=== PATIENT | male | born 2005 | race Caucasian/White ===

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

== ENCOUNTER 2025-01-26 09:43 | Outpatient (AMB) | payer BC, SELFPAY ==
--- NOTE | 2025-01-26 09:45 | MHC.OFFVIS ---
Intake Visit Reasons: 1m follow up Intake Note: Patient is present for 1M F/U Urology Medication:BETAMETHASONE Antibiotic Allergy:NONE Blood Thinner:NONE Advisory Services Associate Required: No Allergies No Known Allergies Allergy (Verified 01/26/25 10:13) Medication List - Last Reconciled 01/26/25 by CHRISTY Tineo betamethasone dipropionate 0.05% 1 appl topical BID HPI Comments Details: Loyda is a very pleasant 19-year-old male patient of Dr. Contreras. He presents to the office today for follow-up of his epididymitis and penile irritation. In discussion with the patient today he reports penile irritation has since subsided with betamethasone as prescribed during last office visit. He does describe having had intermittent episodes of scrotal discomfort however has not found this bothersome in describes this pain as infrequent and dull. On exam today the penis is uncircumcised again small left epididymal head cyst was palpated otherwise no open areas, drainage, or masses palpated throughout the area. Upon retraction of penile foreskin the meatus does not appear reddened and or irritated as prior. We did discussed potential causes of epididymitis. Will continue with surveillance monitoring. He otherwise denies any other bothersome urinary issues or concerns. He denies urinary urgency, urinary frequency, incontinence, nocturia, hematuria, dysuria, foul smelling urine, changes to urinary stream, flank pain, fever, and or chills. He is happy with his current voiding parameters. In office urinalysis results reviewed with the patient today. He is not sexually active and never has been. Scrotal ultrasound 12/14 possible left epididymitis. There is increased blood flow in the left epididymal head compared to the right. We discussed further treatment options and risks and benefits of these treatment options. All questions were answered. He otherwise offers no other issues or concerns at this time. [facility] Medical History No pertinent past medical history Social History Patient Tobacco Use Status: Never used Tobacco Review of Systems Const All systems reviewed & are unremarkable except as noted in HPI and below Physical Exam Const General: cooperative, comfortable, no acute distress, well developed, alert and awake Orientation/consciousness: patient oriented x3 HEENT Head: Yes normal to inspection, Yes normocephalic and Yes atraumatic Ears: hearing grossly normal bilaterally Eyes General: appearance normal, both eyes and all related structures Neck Neck: Yes normal visual inspection and Yes trachea midline Chest Chest palpation & inspection: normal inspection of the chest Resp Effort & Inspection: normal respiratory effort and able to speak in complete sentences Cardio Rate: regular rate GI Inspection: Yes normal to inspection General: Yes no CVA tenderness Penis: uncircumcised Meatus: meatus normal and other Scrotum: other (Left epididymal head cyst) Back/Spine/Pelvis Back: no CVA tenderness Skin General skin exam: no rashes or lesions noted Neuro General: patient oriented x3 Extrem General: Yes normal to inspection Psych Appearance: grossly normal and well kempt Mental Status: mental status grossly normal Speech and movement: Normal speech and movement present and Clear speech present Affect: normal affect Attitude: cooperative Thought process: Normal thought process present Thought content: Normal thought content present Insight: Fair insight present (Psych) Judgement: Fair judgement present (Psych) Results AMB Urinalysis, Automated UA Leukoctes 0 Vazquez/uL Last Edit by VEE Oneill on 01/26/25 09:56 UA Nitrite Negative Last Edit by VEE Oneill on 01/26/25 09:56 UA Urobilinogen 0.2 mg/dL Last Edit by VEE Oneill on 01/26/25 09:56 UA Protein 15 mg/dL Last Edit by VEE Oneill on 01/26/25 09:56 UA pH 6.5 Last Edit by VEE Oneill on 01/26/25 09:56 UA Blood 0 Derik/uL Last Edit by VEE Oneill on 01/26/25 09:56 UA Specific [place] 1.015 Last Edit by VEE Oneill on 01/26/25 09:56 UA Ketone Negative Last Edit by VEE Oneill on 01/26/25 09:56 UA Bilirubin 0 mg/dL Last Edit by VEE Oneill on 01/26/25 09:56 UA Glucose 0 mg/dL Last Edit by VEE Oneill on 01/26/25 09:56 Results Reviewed Results Reviewed: Laboratory Last Values Urine pH (Auto) 6.5 01/26/25 09:55 Specific [place] (Auto) 1.015 01/26/25 09:55 Urine Protein (Auto) 15 mg/dL 01/26/25 09:55 Glucose (UA)(Auto) 0 mg/dL 01/26/25 09:55 Urine Ketones (Auto) Negative 01/26/25 09:55 Urine Blood (Auto) 0 Derik/uL 01/26/25 09:55 Urine Nitrite (Auto) Negative 01/26/25 09:55 Urine Bilirubin (Auto) 0 mg/dL 01/26/25 09:55 Urine Urobilinogen (Auto) 0.2 mg/dL 01/26/25 09:55 Leukocyte Esterase (Auto) 0 Vazquez/uL 01/26/25 09:55 Assessment & Plan Assessment & Plan (1) Epididymal cyst: Code(s): N50.3 - Cyst of epididymis Category: Medical (2) Irritation of urethral meatus: Code(s): N36.8 - Other specified disorders of urethra Category: Medical Plan In office urinalysis results reviewed with the patient today; as noted above. Reassurance provided. Will continue with surveillance monitoring. We did discussed potential causes of penile irritation as well as epididymitis; we did discussed further treatment options and risks and benefits of these treatment options. He currently denies any bothersome urinary issues or concerns. He reports be happy with current voiding parameters. Will obtain scrotal ultrasound in 6 months. Follow-up in 6 months with imaging to be completed prior; or sooner with any issues, concerns, and or questions. Orders: Orders US scrotum 6 Months N36.8 - Other specified disorders of urethra, N50.3 - Cyst of epididymis AMB Urinalysis Automated Today Z13.9 - Encounter for screening, unspecified Patient Instructions: The patient had an opportunity to ask questions regarding the treatment plan. All questions were answered. Physical exam, labs, and imaging were discussed and reviewed in detail. As well as risks, benefits, and discussion of treatment choices. No major barriers to understanding were identified. The patient expressed understanding and agreement with the above treatment plan. The patient was made aware they should contact our office by phone for worsening of their current condition, the appearance of new symptoms, or with any questions or concerns. Compliance is encouraged with any medications and follow up testing that is ordered. It is a privilege to be allowed the opportunity to participate in? your urological care.? Again, if you have any questions or concerns If you have any questions or concerns please do not hesitate to contact me. The office is [phone]. This note is constructed using voice recognition software. While every effort has been made to ensure accuracy wall steamer errors may have been included. Yours sincerely, CHRISTY Tineo Coding Level of Care Code Est Pt Level 3 (79278) Diagnoses Epididymal cyst N50.3 Irritation of urethral meatus N36.8
--- OUTSIDE RECORDS SUMMARY | 2025-01-26 10:10 | XMS_ITS | Encounter Summary ---
Author Organization [facility] Address [address] [place] [address] Phone Care Team Providers Care Retirement Specialist Name Role Phone Yani Contreras MD Primary Care Provider [phone] Encounter Details Date Type Department Care Team (Late st Contact Info) Description 05/04/2014 Documentation EM Family Medicine [address] [place] [address] Family Medicine, Physician [address] [place], [place] [phone] Social History Tobacco Use Types Packs/Day Years [...] on filedocumented in this encounter Care Teams Retirement Specialist Relationship Specialty Start Date End Date Yani Contreras MD [address] [place] [address] [place] [address] PCP - General 01/30/17 documented as of this encounter
== END 2025-01-26 10:16 | disposition home or self-care (01) ==
LOC: HO.HUSH 09:43
PROVIDERS: PCP Specialist; Visit Provider Nurse Practitioner Family
DX: N50.3 Cyst of epididymis (principal); N36.8 Other specified disorders of urethra; Z13.9 Encounter for screening, unspecified
CPT/HCPCS: 99213

== ENCOUNTER → 2025-01-26 09:43 | Outpatient (BNVA) | payer BC, SELFPAY | PROVIDERS: PCP Specialist; Visit Provider Nurse Practitioner Family | DX: N50.3 Cyst of epididymis (principal) | CPT/HCPCS: 81003 ==

== ENCOUNTER 2025-06-05 16:02 | Outpatient (REF) | payer BC, SELFPAY ==
--- NOTE | ~2025-06-05 | US_ITS ---
EXAMINATION: US SCROTUM HISTORY: N50.3 - Cyst of epididymis. COMPARISON: Comparison is made with the prior examination dated 12/01/2024. FINDINGS: Real-time grayscale ultrasound imaging of the scrotum was performed. RIGHT TESTICLE: The right testis measures 4.5 x 2.0 x 3.2 cm and demonstrates normal homogeneous echotexture. No masses are seen. The right testis demonstrates normal color Doppler flow. RIGHT EPIDIDYMIS: Normal in size, shape, and vascularity. LEFT TESTICLE: The left testis measures 4.6 x 1.8 x 3.1 cm and demonstrates normal homogeneous echotexture. No masses are seen. The left testis demonstrates normal color Doppler flow. LEFT EPIDIDYMIS: Normal in size, shape, and vascularity. The previously seen 2 mm epididymal head cyst is not identified. VARICOCELE: There is a small left varicocele. HYDROCELE: No significant hydrocele is seen. OTHER COMMENTS: None. US/US scrotum IMPRESSION: Small left varicocele. Otherwise unremarkable scrotal ultrasound. Electronically signed by: Sarkis Tyler MD 06/06/2025 07:06 AM [facility]
--- OUTSIDE RECORDS SUMMARY | 2025-06-05 22:24 | XMS_ITS | Encounter Summary ---
Author Organization [facility] Address [address] [place] [address] Phone Care Team Providers Care Hot Frame Tender Name Role Phone Yani Contreras MD Primary Care Provider [phone] Encounter Details Date Type Department Care Team (Late st Contact Info) Description 11/06/2015 Documentation EM Family Medicine [address] [place] [address] Family Medicine, Physician [address] [place], [place] [phone] Social History Tobacco Use Types Packs/Day Years [...] on filedocumented in this encounter Care Teams Hot Frame Tender Relationship Specialty Start Date End Date Yani Contreras MD [address] [place] [address] [place] [address] PCP - General 01/30/17 documented as of this encounter
--- OUTSIDE RECORDS SUMMARY | 2025-06-05 22:24 | XMS_ITS | Encounter Summary ---
Author Organization [facility] Address [address] [place] [address] Phone Care Team Providers Care Biology Specialist Name Role Phone Yani Contreras MD Primary Care Provider [phone] Encounter Details Date Type Department Care Team (Late st Contact Info) Description 05/13/2011 Documentation EM Family Medicine [address] [place] [address] Family Medicine, Physician [address] [place], [place] [phone] Social History Tobacco Use Types Packs/Day Years [...] on filedocumented in this encounter Care Teams Biology Specialist Relationship Specialty Start Date End Date Yani Contreras MD [address] [place] [address] [place] [address] PCP - General 01/30/17 documented as of this encounter
--- OUTSIDE RECORDS SUMMARY | 2025-06-05 22:24 | XMS_ITS | Encounter Summary ---
Author Organization [facility] Address [address] [place] [address] Phone Care Team Providers Care Eligibility Examiner Name Role Phone Yani Contreras MD Primary Care Provider [phone] Encounter Details Date Type Department Care Team (Late st Contact Info) Description 05/13/2011 Documentation EM Family Medicine [address] [place] [address] Family Medicine, Physician [address] [place], [place] [phone] Social History Tobacco Use Types Packs/Day Years [...] on filedocumented in this encounter Care Teams Eligibility Examiner Relationship Specialty Start Date End Date Yani Contreras MD [address] [place] [address] [place] [address] PCP - General 01/30/17 documented as of this encounter
--- OUTSIDE RECORDS SUMMARY | 2025-06-05 22:24 | XMS_ITS | Encounter Summary ---
Author Organization [facility] Address [address] [place] [address] Phone Care Team Providers Care Industrial Cleaner Name Role Phone Yani Contreras MD Primary Care Provider [phone] Encounter Details Date Type Department Care Team (Late st Contact Info) Description 02/05/2017 Conversion Encounter [facility] [address] [place], [place] [phone] Social History Tobacco Use Types Packs/Day Years [...] on filedocumented in this encounter Care Teams Industrial Cleaner Relationship Specialty Start Date End Date Yani Contreras MD [address] [place] [address] PCP - General 01/30/17 documented as of this encounter
--- OUTSIDE RECORDS SUMMARY | 2025-06-05 22:24 | XMS_ITS | Encounter Summary ---
Author Organization [facility] Address [address] [place] [address] Phone Care Team Providers Care Renewable Energy Trader Name Role Phone Yani Contreras MD Primary Care Provider [phone] Encounter Details Date Type Department Care Team (Late st Contact Info) Description 05/04/2014 Documentation EM Family Medicine [address] [place] [address] Family Medicine, Physician [address] [place], [place] [phone] Social History Tobacco Use Types Packs/Day Years [...] on filedocumented in this encounter Care Teams Renewable Energy Trader Relationship Specialty Start Date End Date Yani Contreras MD [address] [place] [address] [place] [address] PCP - General 01/30/17 documented as of this encounter
--- OUTSIDE RECORDS SUMMARY | 2025-06-05 22:24 | XMS_ITS | Encounter Summary ---
Author Organization [facility] Address [address] [place] [address] Phone Care Team Providers Care Conventions Assistant Name Role Phone Yani Contreras MD Primary Care Provider Encounter Details Date Type Department Care Team (Late st Contact Info) Description 05/04/2014 Documentation EM Family Medicine [address] [place] [address] Family Medicine, Physician [address] [place], [place] [phone] Social History Tobacco Use Types Packs/Day Years [...] on filedocumented in this encounter Care Teams Conventions Assistant Relationship Specialty Start Date End Date Yani Contreras MD [address] [place] [address] [place] [address] PCP - General 01/30/17 documented as of this encounter
--- OUTSIDE RECORDS SUMMARY | 2025-06-05 22:24 | XMS_ITS | Encounter Summary ---
Author Organization [facility] Address [address] [place] [address] Phone Care Team Providers Care Electric Shipyard Operator Name Role Phone Yani Contreras MD Primary Care Provider [phone] Encounter Details Date Type Department Care Team (Late st Contact Info) Description 10/19/2015 Documentation EM Family Medicine [address] [place] [address] Family Medicine, Physician [address] [place], [place] [phone] Social History Tobacco Use Types Packs/Day Years [...] on filedocumented in this encounter Care Teams Electric Shipyard Operator Relationship Specialty Start Date End Date Yani Contreras MD [address] [place] [address] [place] [address] PCP - General 01/30/17 documented as of this encounter
--- OUTSIDE RECORDS SUMMARY | 2025-06-05 22:24 | XMS_ITS | Encounter Summary ---
Author Organization [facility] Address [address] [place] [address] Phone Care Team Providers Care Care Transport Nurse Name Role Phone Yani Contreras MD Primary Care Provider [phone] Encounter Details Date Type Department Care Team (Late st Contact Info) Description 05/13/2011 Documentation EM Family Medicine [address] [place] [address] Family Medicine, Physician [address] [place], [place] [phone] Social History Tobacco Use Types Packs/Day Years [...] on filedocumented in this encounter Care Teams Care Transport Nurse Relationship Specialty Start Date End Date Yani Contreras MD [address] [place] [address] [place] [address] PCP - General 01/30/17 documented as of this encounter
--- OUTSIDE RECORDS SUMMARY | 2025-06-05 22:24 | XMS_ITS | Encounter Summary ---
Author Organization [facility] Address [address] [place] [address] Phone Care Team Providers Care Business Analytics Manager Name Role Phone Yani Contreras MD Primary Care Provider [phone] Encounter Details Date Type Department Care Team (Late st Contact Info) Description 05/03/2013 Documentation EM Family Medicine [address] [place] [address] Family Medicine, Physician [address] [place], [place] [phone] Social History Tobacco Use Types Packs/Day Years [...] on filedocumented in this encounter Care Teams Business Analytics Manager Relationship Specialty Start Date End Date Yani Contreras MD [address] [place] [address] [place] [address] PCP - General 01/30/17 documented as of this encounter
--- OUTSIDE RECORDS SUMMARY | 2025-06-05 22:24 | XMS_ITS | Encounter Summary ---
Author Organization [facility] Address [address] [place] [address] Phone Care Team Providers Care Rush Seater Name Role Phone Yani Contreras MD Primary Care Provider [phone] Encounter Details Date Type Department Care Team (Late st Contact Info) Description 09/29/2014 Documentation EM Family Medicine [address] [place] [address] Family Medicine, Physician [address] [place], [place] [phone] Social History Tobacco Use Types Packs/Day Years [...] on filedocumented in this encounter Care Teams Rush Seater Relationship Specialty Start Date End Date Yani Contreras MD [address] [place] [address] [place] [address] PCP - General 01/30/17 documented as of this encounter
--- OUTSIDE RECORDS SUMMARY | 2025-06-05 22:24 | XMS_ITS | Encounter Summary ---
Author Organization [facility] Address [address] [place] [address] Phone Care Team Providers Care Building Dismantler Name Role Phone Yani Contreras MD Primary Care Provider [phone] Encounter Details Date Type Department Care Team (Late st Contact Info) Description 05/24/2013 Documentation EM Family Medicine [address] [place] [address] Family Medicine, Physician [address] [place], [place] [phone] Social History Tobacco Use Types Packs/Day Years [...] on filedocumented in this encounter Care Teams Building Dismantler Relationship Specialty Start Date End Date Yani Contreras MD [address] [place] [address] [place] [address] PCP - General 01/30/17 documented as of this encounter
--- OUTSIDE RECORDS SUMMARY | 2025-06-05 22:24 | XMS_ITS | Encounter Summary ---
Author Organization [facility] Address [address] [place] [address] Phone Care Team Providers Care Supervisor Livestock Yard Name Role Phone Yani Contreras MD Primary Care Provider [phone] Encounter Details Date Type Department Care Team (Late st Contact Info) Description 05/13/2011 Documentation EM Family Medicine [address] [place] [address] Family Medicine, Physician [address] [place], [place] [phone] Social History Tobacco Use Types Packs/Day Years [...] on filedocumented in this encounter Care Teams Supervisor Livestock Yard Relationship Specialty Start Date End Date Yani Contreras MD [address] [place] [address] [place] [address] PCP - General 01/30/17 documented as of this encounter
--- OUTSIDE RECORDS SUMMARY | 2025-06-05 22:24 | XMS_ITS | Encounter Summary ---
Author Organization [facility] Address [address] [place] [address] Phone Care Team Providers Care Acquisition Specialist Name Role Phone Yani Contreras MD Primary Care Provider [phone] Encounter Details Date Type Department Care Team (Late st Contact Info) Description 05/19/2012 Documentation EM Family Medicine [address] [place] [address] Family Medicine, Physician [address] [place], [place] [phone] Social History Tobacco Use Types Packs/Day Years [...] on filedocumented in this encounter Care Teams Acquisition Specialist Relationship Specialty Start Date End Date Yani Contreras MD [address] [place] [address] [place] [address] PCP - General 01/30/17 documented as of this encounter
--- OUTSIDE RECORDS SUMMARY | 2025-06-05 22:24 | XMS_ITS | Encounter Summary ---
Author Organization [facility] Address [address] [place] [address] Phone Care Team Providers Care Docking Pilot Name Role Phone Yani Contreras MD Primary Care Provider [phone] Encounter Details Date Type Department Care Team (Late st Contact Info) Description 10/20/2016 Documentation EM Family Medicine [address] [place] [address] Family Medicine, Physician [address] [place], [place] [phone] Social History Tobacco Use Types Packs/Day Years [...] on filedocumented in this encounter Care Teams Docking Pilot Relationship Specialty Start Date End Date Yani Contreras MD [address] [place] [address] [place] [address] PCP - General 01/30/17 documented as of this encounter
--- OUTSIDE RECORDS SUMMARY | 2025-06-05 22:24 | XMS_ITS | Encounter Summary ---
Author Organization [facility] Address [address] [place] [address] Phone Care Team Providers Care Fisheries Director Name Role Phone Yani Contreras MD Primary Care Provider [phone] Encounter Details Date Type Department Care Team (Late st Contact Info) Description 06/01/2015 Documentation EM Family Medicine [address] [place] [address] Family Medicine, Physician [address] [place], [place] [phone] Social History Tobacco Use Types Packs/Day Years [...] on filedocumented in this encounter Care Teams Fisheries Director Relationship Specialty Start Date End Date Yani Contreras MD [address] [place] [address] [place] [address] PCP - General 01/30/17 documented as of this encounter
--- OUTSIDE RECORDS SUMMARY | 2025-06-05 22:24 | XMS_ITS | Encounter Summary ---
Author Organization [facility] Address [address] [place] [address] Phone Care Team Providers Care Hand Tufter Name Role Phone Yani Contreras MD Primary Care Provider [phone] Encounter Details Date Type Department Care Team (Late st Contact Info) Description 04/28/2016 Documentation EM Family Medicine [address] [place] [address] Family Medicine, Physician [address] [place], [place] [phone] Social History Tobacco Use Types Packs/Day Years [...] on filedocumented in this encounter Care Teams Hand Tufter Relationship Specialty Start Date End Date Yani Contreras MD [address] [place] [address] [place] [address] PCP - General 01/30/17 documented as of this encounter
--- OUTSIDE RECORDS SUMMARY | 2025-06-05 22:24 | XMS_ITS | Encounter Summary ---
Author Organization [facility] Address [address] [place] [address] Phone Care Team Providers Care Poultry Farmer Meat Name Role Phone Yani Contreras MD Primary Care Provider [phone] Encounter Details Date Type Department Care Team (Late st Contact Info) Description 05/03/2013 Documentation EM Family Medicine [address] [place] [address] Family Medicine, Physician [address] [place], [place] [phone] Social History Tobacco Use Types Packs/Day Years [...] on filedocumented in this encounter Care Teams Poultry Farmer Meat Relationship Specialty Start Date End Date Yani Contreras MD [address] [place] [address] [place] [address] PCP - General 01/30/17 documented as of this encounter
--- OUTSIDE RECORDS SUMMARY | 2025-06-05 22:24 | XMS_ITS | Encounter Summary ---
Author Organization [facility] Address [address] [place] [address] Phone Care Team Providers Care Metalworking Specialist Name Role Phone Yani Contreras MD Primary Care Provider [phone] Encounter Details Date Type Department Care Team (Late st Contact Info) Description 10/20/2016 Documentation EM Family Medicine [address] [place] [address] Family Medicine, Physician [address] [place], [place] [phone] Social History Tobacco Use Types Packs/Day Years [...] on filedocumented in this encounter Care Teams Metalworking Specialist Relationship Specialty Start Date End Date Yani Contreras MD [address] [place] [address] [place] [address] PCP - General 01/30/17 documented as of this encounter
--- OUTSIDE RECORDS SUMMARY | 2025-06-05 22:24 | XMS_ITS | Encounter Summary ---
Author Organization [facility] Address [address] [place] [address] Phone Care Team Providers Care Load Dropper Name Role Phone Yani Contreras MD Primary Care Provider [phone] Encounter Details Date Type Department Care Team (Late st Contact Info) Description 09/29/2014 Documentation EM Family Medicine [address] [place] [address] Family Medicine, Physician [address] [place], [place] [phone] Social History Tobacco Use Types Packs/Day Years [...] on filedocumented in this encounter Care Teams Load Dropper Relationship Specialty Start Date End Date Yani Contreras MD [address] [place] [address] [place] [address] PCP - General 01/30/17 documented as of this encounter
--- OUTSIDE RECORDS SUMMARY | 2025-06-05 22:24 | XMS_ITS | Encounter Summary ---
Author Organization [facility] Address [address] [place] [address] Phone Care Team Providers Care Dealer Sales Rep Name Role Phone Yani Contreras MD Primary Care Provider [phone] Encounter Details Date Type Department Care Team (Late st Contact Info) Description 04/28/2016 Documentation EM Family Medicine [address] [place] [address] Family Medicine, Physician [address] [place], [place] [phone] Social History Tobacco Use Types Packs/Day Years [...] on filedocumented in this encounter Care Teams Dealer Sales Rep Relationship Specialty Start Date End Date Yani Contreras MD [address] [place] [address] [place] [address] PCP - General 01/30/17 documented as of this encounter
--- OUTSIDE RECORDS SUMMARY | 2025-06-05 22:25 | XMS_ITS | Clinical Summary ---
Author Organization [facility] Address [address] [place] [address] Phone Care Team Providers Care Gauge Inspector Name Role Phone Yani Contreras MD Primary Care Provider [phone] Allergies Active Allergy Reactions Criticality Noted Date Comments Environmental 05/29/2022 Seasonal Medications No known medications Active Problems Problem Noted Date Diagnosed Date Family disruption due to divorce 12/24/2020 Overview (12/24/2020): process x 2 yr; finalized and now living separately x 1 mo; co- parenting dad in [place] and mom in [facility]; per dad they (Hamzah) say they are fine -explanation of [facility] services and business cards provided if needed Assessment & Plan (12/24/2020 2:39 PM EDT): process x 2 yr; finalized and now living separately x 1 mo; co- parenting dad in [place] and mom in [facility]; per dad they (Hamzah) say they are fine -explanation of [facility] services and business cards provided if needed Immunizations Immunization Administration Dates Next Due COVID-19 Pfizer, genevieve-sucros e, 12+ years 08/04/2021 DTaP 03/29/2010 DTaP / Hep B / IPV 02/02/2006,2005, 006 DTaP 5 10/30/2006 H1N1 05/29/2009,04/11/2009 HPV Vaccine 9 Valent 10/23/2017,10/20/2016 Hep A, ped/adol 02/09/2007,08/11/2006 Hib (HbOC) 10/30/2006 Hib (PRP-T) 02/02/2006,2005,2005 IPV 03/29/2010 Influenza Split 05/18/2012 Influenza, injectable, quadrivalent 04/15/2015,1 07/03/2013 Influenza, injectable, quadr ivalent, preservative free 05/13/2022,04/12/2020,05/15/2019,06/07,04/22/2017,04/27/2016 Influenza, injectable, trivalent 009,05/12/2008,04/16/2007,06/10,05/08/2006 Influenza, intranasal, quadrivalent 05/02/2013 Influenza, intranasal, trivalent 05/12/2011,10/0 01/2010 MMR 03/29/2010 MMRV 08/11/2006 Meningococcal Conj (Menactra) MCV4P 10/20/2016 Meningococcal Conj (Menquadfi) MCV4TT 05/29/2022 Pneumococcal Conjugate 10/30/2006,2005,2005,09/29 Tdap 10/20/2016 Varicella 03/29/2010 Family History Medical History Relation Name Comments No Known Problems Brother Aleksander Malone Anxiety disorder Father Amarjit Malone Substance abuse Maternal Grandmother Anxiety disorder Mother Remy Perez Relation Name Status Comments Brother Aleksander Malone Alive Brother: Aliv e and well Father Amarjit Malone Alive Father: Alive a nd well Maternal Grandmother Mother Remy Perez Alive Mother: Alive and well Other Family history of Hyperlipidemia Social History Tobacco Use Types Packs/Day Years Used Date Smoking Tobacco: Never Smokeless Tobacco: Never Tobacco Cessation:Counseling Given: Yes Alcohol Use Standard Drinks/Week Comments Never 0 (1 standard drink = 0.6 oz pur e alcohol) Hunger/Food Answer Date Recorded In the last 12 months, did y ou or your family ever eat less than you felt you should because there wasn't enough money for food? No 06/09/2023 Stable Housing Answer Date Recorded Are you worried that in the next 2 months you may not have stable housing? No 06/09/2023 Transportation Concerns Answer Date Rec orded In the last 12 months, have you or your family ever had to go without healthcare because you didn't have a way to get there? No 06/09/2023 Hazards in Home Answer Date Recorded Think about the place you li ve. Do you have problems with any of the following? Pests (mice or roaches), mold, no/not working smoke detectors, water leaks, no window guards. No 2022 Financing Utilities Answer Date Recorde d In the last 12 months, has t he electric, gas, oil, or water company threatened to shut off your services in your home? No 06/09/2023 Safety at Home Answer Date Recorded Are you or your family worried about feeling saf e in your home? No 06/09/2023 Outside Support Answer Date Recorded Do you feel that you need mo re support from other people or programs to help you care for yourself or your family? No 06/09/2023 Understanding Health Concerns Answer Da te Recorded Do you need help understandi ng your or your child's healthcare needs (diagnosis, medications, plan, etc.)? No 06/09/2023 Financing Health Concerns Answer Date R ecorded In the last 12 months, was t here a time when your child needed to see a doctor or get medications or supplies but could not because of cost? No 06/09/2023 Missing School or Work Answer Date Odilon rded Did you or your child miss s chool or work because of a health problem that could have been avoided? No 06/09/2023 Sex and Gender Information Value Date Recorded Sex Assigned at Male 06/09/2023 1:56 PM EST Legal Sex Male 5:20 PM EDT Gender Identity Male 06/09/2023 1:56 PM EST Sexual Orientation Straight 06/09/2023 1: 56 PM EST Last Filed Vital Signs Vital Sign Reading Time Taken Comments Blood Pressure 115/69 06/09/2023 1:24 PM EST Pulse 60 06/09/2023 1:24 PM EST Temperature 36.2 C (97.1 F) 05/29/2022 1:47 PM EST Respiratory Rate - - Oxygen Saturation - - Inhaled Oxygen Concentration - - Weight 62.1 kg (136 lb 12.8 oz) 06/09/2023 1:24 PM EST Height 182 cm (5' 11.65 ) 06/09/2023 1:24 PM EST Body Mass Index 18.73 06/09/2023 1:24 PM EST Body Mass Index Percentile 9.40% 06/09/2023 1:2 4 PM EST Growth Chart: CDC (Boys, 2-2 0 Years) Plan of Treatment Health Maintenance Due Date Last Done Comments Men B Vaccine (1 of 2 - Standard) 2021 Influenza Vaccines (#1) 2025 05/13/20, 04/12/2020, 05/15/2019, Additional history exists COVID-19 Vaccine (5 - 2024-2 6 season) 2025 05/13/2022, 08/04/2021, 12/10/2020, Additional history exists DTaP,Tdap,and Td Vaccines (7 - Td or Tdap) 10/20/2026 10/20/2016, 03/29/2010, 10/30/2006, Additional history exists Hepatitis B Vaccines Completed 02/02/2006, 2005, 2005 HIB Vaccines Completed 10/30/2006, 01/20, 2005, Additional history exists Pneumococcal Vaccine Completed 10/30/2006, 02/02/2006, 2005, Additional history exists Hepatitis A Vaccines Completed 02/09/2007, 08/11/19 07 IPV Vaccines Completed 03/29/2010, 01/20, 2005, Additional history exists MMR Vaccines Completed 03/29/2010, 08/11/2006 Varicella Vaccines Completed 03/29/2010, 08/11/2006 HPV Vaccines Completed 10/23/2017, 10/20/2016 Meningococcal Vaccine Completed 05/29/2022, 017 Insurance [employer] Care Teams Gauge Inspector Relationship Specialty Start Date End Date Yani Contreras MD [address] [place] [address] [place] [address] PCP - General 01/30/17
--- OUTSIDE RECORDS SUMMARY | 2025-06-05 22:25 | XMS_ITS | Encounter Summary ---
Author Organization [facility] Address [address] [place] [address] Phone Care Team Providers Care Press Machine Feeder Name Role Phone Yani Contreras MD Primary Care Provider [phone] Encounter Details Date Type Department Care Team (Late st Contact Info) Description 06/28/2015 Documentation EM Family Medicine [address] [place] [address] Family Medicine, Physician [address] [place], [place] [phone] Social History Tobacco Use Types Packs/Day Years [...] on filedocumented in this encounter Care Teams Press Machine Feeder Relationship Specialty Start Date End Date Yani Contreras MD [address] [place] [address] [place] [address] PCP - General 01/30/17 documented as of this encounter
--- OUTSIDE RECORDS SUMMARY | 2025-06-05 22:25 | XMS_ITS | Encounter Summary ---
Author Organization [facility] Address [address] [place] [address] Phone Care Team Providers Care Bureau Chief Name Role Phone Yani Contreras MD Primary Care Provider [phone] Encounter Details Date Type Department Care Team (Late st Contact Info) Description 06/27/2015 Documentation EM Family Medicine [address] [place] [address] Family Medicine, Physician [address] [place], [place] [phone] Social History Tobacco Use Types Packs/Day Years [...] on filedocumented in this encounter Care Teams Bureau Chief Relationship Specialty Start Date End Date Yani Contreras MD [address] [place] [address] [place] [address] PCP - General 01/30/17 documented as of this encounter
--- OUTSIDE RECORDS SUMMARY | 2025-06-05 22:25 | XMS_ITS | Encounter Summary ---
Author Organization [facility] Address [address] [place] [address] Phone Care Team Providers Care Veneer Production Machine Operator Name Role Phone Yani Contreras MD Primary Care Provider [phone] Encounter Details Date Type Department Care Team (Late st Contact Info) Description 10/19/2015 Documentation EM Family Medicine [address] [place] [address] Family Medicine, Physician [address] [place], [place] [phone] Social History Tobacco Use Types Packs/Day Years [...] on filedocumented in this encounter Care Teams Veneer Production Machine Operator Relationship Specialty Start Date End Date Yani Contreras MD [address] [place] [address] [place] [address] PCP - General 01/30/17 documented as of this encounter
== END 2025-06-05 16:03 | disposition home or self-care (01) ==
LOC: HO.US 16:02
PROVIDERS: PCP Specialist; Visit Provider Nurse Practitioner Family
DX: N50.3 Cyst of epididymis (principal); N36.8 Other specified disorders of urethra
CPT/HCPCS: 76870

== ENCOUNTER → 2025-06-05 16:04 | Outpatient (BNV) | payer BC, SELFPAY | PROVIDERS: PCP Specialist; Visit Provider Radiology Diagnostic Radiology | DX: N50.3 Cyst of epididymis (principal); I86.1 Scrotal varices | CPT/HCPCS: 76870 ==

== ENCOUNTER 2025-06-19 11:26 | Outpatient (AMB) | payer BC, SELFPAY ==
--- NOTE | 2025-06-19 11:26 | A.OFFVIS_ITS ---
Intake Visit Reasons: 5m/US/UA Intake Note: Patient is present for 5M F/U Urology Medication: none Antibiotic Allergy:NONE Blood Thinner:NONE Imaging : Scrotum US 06/05/25 Office Machine Installer Required: No Accompanied by: Self / Same As Patient Allergies No Known Allergies Allergy (Verified 06/19/25 11:35) Medication List - Last Reconciled 06/19/25 by CHRISTY Tineo No Known Home Meds HPI Comments Details: Loyda is a very pleasant 19-year-old male patient of Dr. Contreras. He presents to the office today for follow-up of his epididymitis and penile irritation. In discussion with the patient today he reports to be doing and feeling well. He denies having had any bothersome urinary issues or concerns since his last office visit here. He reports penile irritation has since subsided with betamethasone as prescribed. He denies having had any scrotal discomfort in the last 6 months. Most recent scrotal imaging results reviewed with the patient today 06/15 small left varicocele. Otherwise unremarkable scrotal ultrasound. In assessment of the patient today the penis is unci rcumcised upon retraction of penile foreskin the head of the penis does not appear irritated. No open areas, lesions, and or drainage noted. No palpable abnormalities within the scrotum. He denies urinary urgency, urinary frequency, incontinence, nocturia, hematuria, dysuria, foul smelling urine, changes to urinary stream, flank pain, fever, and or chills. He is happy with his current voiding parameters. In office urinalysis results reviewed with the patient today. He is not sexually active and never has been. All questions were answered. He otherwise offers no other issues or concerns at this time. [facility] Medical History No pertinent past medical history Social History Patient Tobacco Use Status: Never used Tobacco Review of Systems Const All systems reviewed & are unremarkable except as noted in HPI and below Physical Exam Const General: cooperative, comfortable, no acute distress, well developed, alert and awake Orientation/consciousness: patient oriented x3 HEENT Head: Yes normal to inspection, Yes normocephalic and Yes atraumatic Ears: hearing grossly normal bilaterally Eyes General: appearance normal, both eyes and all related structures Neck Neck: Yes normal visual inspection and Yes trachea midline Chest Chest palpation & inspection: normal inspection of the chest Resp Effort & Inspection: normal respiratory effort and able to speak in complete sentences Cardio Rate: regular rate GI Inspection: Yes normal to inspection General: Yes no CVA tenderness Penis: uncircumcised Meatus: meatus normal Scrotum: scrotum normal Testes: Testes normal Back/Spine/Pelvis Back: no CVA tenderness Skin General skin exam: no rashes or lesions noted Neuro General: patient oriented x3 Extrem General: Yes normal to inspection Psych Appearance: grossly normal and well kempt Mental Status: mental status grossly normal Speech and movement: Normal speech and movement present and Clear speech present Affect: normal affect Attitude: cooperative Thought process: Normal thought process present Thought content: Normal thought content present Insight: Fair insight present (Psych) Judgement: Fair judgement present (Psych) Results AMB Urinalysis, Automated UA Leukoctes 0 Vazquez/uL Last Edit by Kinsey Amaro [facility] on 06/19/25 11:33 UA Nitrite Negative Last Edit by Kinsey Amaro [facility] on 06/19/25 11:33 UA Urobilinogen 0.2 mg/dL Last Edit by Kinsey Amaro [facility] on 06/19/25 11:33 UA Protein 0 mg/dL Last Edit by Kinsey Amaro [facility] on 06/19/25 11:33 UA pH 7.5 Last Edit by Kinsey Prem [facility] on 06/19/25 11:33 UA Blood 0 Derik/uL Last Edit by Kinsey Amaro [facility] on 06/19/25 11:33 UA Specific [facility] 1.010 Last Edit by Kinsey Amaro [facility] on 06/19/25 11:3 3 UA Ketone Negative Last Edit by Kinsey Amaro [facility] on 06/19/25 11:33 UA Bilirubin 0 mg/dL Last Edit by Kinseynathaniel Amaro [facility] on 06/19/25 11:33 UA Glucose 0 mg/dL Last Edit by Kinsey Amaro [facility] on 06/19/25 11:33 Results Reviewed Results Reviewed: Laboratory Last Values Urine pH (Auto) 7.5 06/19/25 11:32 Specific [facility] (Auto) 1.010 06/19/25 11:32 Urine Protein (Auto) 0 mg/dL 06/19/25 11:32 Glucose (UA)(Auto) 0 mg/dL 06/19/25 11:32 Urine Ketones (Auto) Negative 06/19/25 11:32 Urine Blood (Auto) 0 Derik/uL 06/19/25 11:32 Urine Nitrite (Auto) Negative 06/19/25 11:32 Urine Bilirubin (Auto) 0 mg/dL 06/19/25 11:32 Urine Urobilinogen (Auto) 0.2 mg/dL 06/19/25 11:32 Leukocyte Esterase (Auto) 0 Vazquez/uL 06/19/25 11:32 Date of Service: 06/05/25 Procedure(s): US scrotum FINDINGS: Real-time grayscale ultrasound imaging of the scrotum was performed. RIGHT TESTICLE: The right testis measures 4.5 x 2.0 x 3.2 cm and demonstrates normal homogeneous echotexture. No masses are seen. The right testis demonstrates normal color Doppler flow. RIGHT EPIDIDYMIS: Normal in size, shape, and vascularity. LEFT TESTICLE: The left testis measures 4.6 x 1.8 x 3.1 cm and demonstrates normal homogeneous echotexture. No masses are seen. The left testis demonstrates normal color Doppler flow. LEFT EPIDIDYMIS: Normal in size, shape, and vascularity. The previously seen 2 mm epididymal head cyst is not identified. VARICOCELE: There is a small left varicocele. HYDROCELE: No significant hydrocele is seen. OTHER COMMENTS: None. IMPRESSION: Small left varicocele. Otherwise unremarkable scrotal ultrasound. Assessment & Plan Assessment & Plan (1) Irritation of urethral meatus: Code(s): N36.8 - Other specified disorders of urethra Category: Medical (2) Epididymal cyst: Code(s): N50.3 - Cyst of epididymis Category: Medical Plan In office urinalysis results with the patient today; as noted above. Most recent scrotal imaging results reviewed with the patient today; as noted above. He currently denies any bothersome urinary issues or concerns. He reports be happy with current voiding parameters. We did discussed potential causes of previous epididymitis, epididymal head cysts, as well as balanitis. We did discussed proper hygiene. All questions were answered. Follow-up PRN; or sooner with any issues, concerns, and or questions. Orders: Orders AMB Urinalysis Automated Today N13.8 - Other obstructive and reflux uropathy, N40.1 - Benign prostatic hyperplasia with lower urinary tract symptoms Patient Instructions: The patient had an opportunity to ask questions regarding the treatment plan. All questions were answered. Physical exam, labs, and imaging were discussed and reviewed in detail. As well as risks, benefits, and discussion of treatment choices. No major barriers to understanding were identified. The patient expressed understanding and agreement with the above treatment plan. The patient was made aware they should contact our office by phone for worsening of their current condition, the appearance of new symptoms, or with any questions or concerns. Compliance is encouraged with any medications and follow up testing that is ordered. It is a privilege to be allowed the opportunity to participate in? your urological care.? Again, if you have any questions or concerns If you have any questions or concerns please do not hesitate to contact me. The office is [phone]. This note is constructed using voice recognition software. While every effort has been made to ensure accuracy voice systems engineer errors may have been included. Yours sincerely, CHRISTY Tineo Coding Level of Care Code Est Pt Level 3 (58392) Diagnoses Irritation of urethral meatus N36.8 Epididymal cyst N50.3
--- OUTSIDE RECORDS SUMMARY | 2025-06-19 13:26 | XMS_ITS | Encounter Summary ---
Author Organization [facility] Address [address] [place] [address] Phone Care Team Providers Care It Consulting Manager Name Role Phone Yani Contreras MD Primary Care Provider [phone] Encounter Details Date Type Department Care Team (Late st Contact Info) Description 05/13/2011 Documentation EM Family Medicine [address] [place] [address] Family Medicine, Physician [address] [place], [place] [phone] Social History Tobacco Use Types Packs/Day Years [...] on filedocumented in this encounter Care Teams It Consulting Manager Relationship Specialty Start Date End Date Yani Contreras MD [address] [place] [address] [place] [address] PCP - General 01/30/17 documented as of this encounter
--- OUTSIDE RECORDS SUMMARY | 2025-06-19 13:26 | XMS_ITS | Encounter Summary ---
Author Organization [facility] Address [address] [place] [address] Phone Care Team Providers Care Assistant Professor Surgical Technology Name Role Phone Yani Contreras MD Primary Care Provider [phone] Encounter Details Date Type Department Care Team (Late st Contact Info) Description 09/29/2014 Documentation EM Family Medicine [address] [place] [address] Family Medicine, Physician [address] [place], [place] [phone] Social History Tobacco Use Types Packs/Day Years [...] on filedocumented in this encounter Care Teams Assistant Professor Surgical Technology Relationship Specialty Start Date End Date Yani Contreras MD [address] [place] [address] [place] [address] PCP - General 01/30/17 documented as of this encounter
--- OUTSIDE RECORDS SUMMARY | 2025-06-19 13:26 | XMS_ITS | Encounter Summary ---
Author Organization [facility] Address [address] [place] [address] Phone Care Team Providers Care Line Dancer Name Role Phone Yani Contreras MD Primary Care Provider [phone] Encounter Details Date Type Department Care Team (Late st Contact Info) Description 11/06/2015 Documentation EM Family Medicine [address] [place] [address] Family Medicine, Physician [address] [place], [place] [phone] Social History Tobacco Use Types Packs/Day Years [...] on filedocumented in this encounter Care Teams Line Dancer Relationship Specialty Start Date End Date Yani Contreras MD [address] [place] [address] [place] [address] PCP - General 01/30/17 documented as of this encounter
--- OUTSIDE RECORDS SUMMARY | 2025-06-19 13:26 | XMS_ITS | Encounter Summary ---
Author Organization [facility] Address [address] [place] [address] Phone Care Team Providers Care Herb Doctor Name Role Phone Yani Contreras MD Primary Care Provider [phone] Encounter Details Date Type Department Care Team (Late st Contact Info) Description 04/28/2016 Documentation EM Family Medicine [address] [place] [address] Family Medicine, Physician [address] [place], [place] [phone] Social History Tobacco Use Types Packs/Day Years [...] on filedocumented in this encounter Care Teams Herb Doctor Relationship Specialty Start Date End Date Yani Contreras MD [address] [place] [address] [place] [address] PCP - General 01/30/17 documented as of this encounter
--- OUTSIDE RECORDS SUMMARY | 2025-06-19 13:26 | XMS_ITS | Encounter Summary ---
Author Organization [facility] Address [address] [place] [address] Phone Care Team Providers Care Motorboat Mechanic Inboard/Outboard Name Role Phone Yani Contreras MD Primary Care Provider [phone] Encounter Details Date Type Department Care Team (Late st Contact Info) Description 05/13/2011 Documentation EM Family Medicine [address] [place] [address] Family Medicine, Physician [address] [place], [place] [phone] Social History Tobacco Use Types Packs/Day Years [...] on filedocumented in this encounter Care Teams Motorboat Mechanic Inboard/Outboard Relationship Specialty Start Date End Date Yani Contreras MD [address] [place] [address] [place] [address] PCP - General 01/30/17 documented as of this encounter
--- OUTSIDE RECORDS SUMMARY | 2025-06-19 13:26 | XMS_ITS | Clinical Summary ---
Author Organization [facility] Address [address] [place] [address] Phone Care Team Providers Care Office Technology Instructor Name Role Phone Yani Contreras MD Primary Care Provider [phone] Allergies Active Allergy Reactions Criticality Noted Date Comments Environmental 05/29/2022 Seasonal Medications No known medications Active Problems Problem Noted Date Diagnosed Date Family disruption due to divorce 12/24/2020 Overview (12/24/2020): process x 2 yr; finalized and now living separately x 1 mo; co- parenting dad in [place] and mom in [facility]; per dad they (Hamzah) say they are fine -explanation of [facility] services and business cards provided if needed Assessment & Plan (12/24/2020 2:39 PM EDT): process x 2 yr; finalized and now living separately x 1 mo; co- parenting dad in [place] and mom in [facility]; per dad they (Hamzah) say they are fine -explanation of [facility] services and business cards provided if needed [...] 10/20/2016 Meningococcal Vaccine Completed 05/29/2022, 017 [facility] Care Teams Office Technology Instructor Relationship Specialty Start Date End Date Yani Contreras MD [address] [place] [address] JAZ[place]N Moy [address] PCP - General 01/30/17
--- OUTSIDE RECORDS SUMMARY | 2025-06-19 13:26 | XMS_ITS | Encounter Summary ---
Author Organization [facility] Address [address] [place] [address] Phone Care Team Providers Care Organic Extractions Technician Name Role Phone Yani Contreras MD Primary Care Provider [phone] Encounter Details Date Type Department Care Team (Late st Contact Info) Description 05/13/2011 Documentation EM Family Medicine [address] [place] [address] Family Medicine, Physician [address] [place], [place] [id number] Social History Tobacco Use Types Packs/Day Years [...] on filedocumented in this encounter Care Teams Organic Extractions Technician Relationship Specialty Start Date End Date Yani Contreras MD [address] [place] [address] [place] [address] PCP - General 01/30/17 documented as of this encounter
--- OUTSIDE RECORDS SUMMARY | 2025-06-19 13:26 | XMS_ITS | Encounter Summary ---
Author Organization [facility] Address [address] [place] [address] Phone Care Team Providers Care Ms Sql Dba Name Role Phone Yani Contreras MD Primary Care Provider [phone] Encounter Details Date Type Department Care Team (Late st Contact Info) Description 10/19/2015 Documentation EM Family Medicine [address] [place] [address] Family Medicine, Physician [address] [place], [place] [phone] Social History Tobacco Use Types Packs/Day Years [...] on filedocumented in this encounter Care Teams Ms Sql Dba Relationship Specialty Start Date End Date Yani Contreras MD [address] [place] [address] [place] [address] PCP - General 01/30/17 documented as of this encounter
--- OUTSIDE RECORDS SUMMARY | 2025-06-19 13:26 | XMS_ITS | Encounter Summary ---
Author Organization [facility] Address [address] [place] [address] Phone Care Team Providers Care Inspector Mechanical Name Role Phone Yani Contreras MD Primary Care Provider [phone] Encounter Details Date Type Department Care Team (Late st Contact Info) Description 10/19/2015 Documentation EM Family Medicine [address] [place] [address] Family Medicine, Physician [address] [place], [place] [id number] Social History Tobacco Use Types Packs/Day Years [...] on filedocumented in this encounter Care Teams Inspector Mechanical Relationship Specialty Start Date End Date Yani Contreras MD [address] [place] [address] [place] [address] PCP - General 01/30/17 documented as of this encounter
--- OUTSIDE RECORDS SUMMARY | 2025-06-19 13:26 | XMS_ITS | Encounter Summary ---
Author Organization [facility] Address [address] [place] [address] Phone Care Team Providers Care Milieu Manager Name Role Phone Yani Contreras MD Primary Care Provider [phone] Encounter Details Date Type Department Care Team (Late st Contact Info) Description 05/04/2014 Documentation EM Family Medicine [address] [place] [address] Family Medicine, Physician [address] [place], [place] [id number] Social History Tobacco Use Types Packs/Day Years [...] on filedocumented in this encounter Care Teams Milieu Manager Relationship Specialty Start Date End Date Yani Contreras MD [address] [place] [address] [place] [address] PCP - General 01/30/17 documented as of this encounter
--- OUTSIDE RECORDS SUMMARY | 2025-06-19 13:26 | XMS_ITS | Encounter Summary ---
Author Organization [facility] Address [address] [place] [address] Phone Care Team Providers Care Curbing Stonecutter Name Role Phone Yani Contreras MD Primary Care Provider [phone] Encounter Details Date Type Department Care Team (Late st Contact Info) Description 04/28/2016 Documentation EM Family Medicine [address] [place] [address] Family Medicine, Physician [address] [place], [place] [phone] Social History Tobacco Use Types Packs/Day Years [...] on filedocumented in this encounter Care Teams Curbing Stonecutter Relationship Specialty Start Date End Date Yani Contreras MD [address] [place] [address] [place] [address] PCP - General 01/30/17 documented as of this encounter
--- OUTSIDE RECORDS SUMMARY | 2025-06-19 13:26 | XMS_ITS | Encounter Summary ---
Author Organization [facility] Address [address] [place] [address] Phone Care Team Providers Care Inspector Integrated Circuits Name Role Phone Yani Contreras MD Primary Care Provider [phone] Encounter Details Date Type Department Care Team (Late st Contact Info) Description 06/28/2015 Documentation EM Family Medicine [address] [place] [address] Family Medicine, Physician [address] [place], [place] [phone] Social History Tobacco Use Types Packs/Day Years [...] filedocumented in this encounter Care Teams Inspector Integrated Circuits Relationship Specialty Start Date End Date Yani Contreras MD [address] [place] [address] [place] [address] PCP - General 01/30/17 documented as of this encounter
--- OUTSIDE RECORDS SUMMARY | 2025-06-19 13:26 | XMS_ITS | Encounter Summary ---
Author Organization [facility] Address [address] [place] [address] Phone Care Team Providers Care Assembler Tubing Name Role Phone Yani Contreras MD Primary Care Provider [phone] Encounter Details Date Type Department Care Team (Late st Contact Info) Description 10/20/2016 Documentation EM Family Medicine [address] [place] [address] Family Medicine, Physician [address] [place], [place] [phone] Social History Tobacco Use Types Packs/Day Years [...] on filedocumented in this encounter Care Teams Assembler Tubing Relationship Specialty Start Date End Date Yani Contreras MD [address] [place] [address] [place] [address] PCP - General 01/30/17 documented as of this encounter
--- OUTSIDE RECORDS SUMMARY | 2025-06-19 13:26 | XMS_ITS | Encounter Summary ---
Author Organization [facility] Address [address] [place] [address] Phone Care Team Providers Care Telephone Engineer Name Role Phone Yani Contreras MD Primary Care Provider [phone] Encounter Details Date Type Department Care Team (Late st Contact Info) Description 05/19/2012 Documentation EM Family Medicine [address] [place] [address] Family Medicine, Physician [address] [place], [place] [phone] Social History Tobacco Use Types Packs/Day Years [...] on filedocumented in this encounter Care Teams Telephone Engineer Relationship Specialty Start Date End Date Yani Contreras MD [address] [place] [address] [place] [address] PCP - General 01/30/17 documented as of this encounter
--- OUTSIDE RECORDS SUMMARY | 2025-06-19 13:26 | XMS_ITS | Encounter Summary ---
Author Organization [facility] Address [address] [place] [address] Phone Care Team Providers Care Elementary Ell Teacher Name Role Phone Yani Contreras MD Primary Care Provider [phone] Encounter Details Date Type Department Care Team (Late st Contact Info) Description 09/29/2014 Documentation EM Family Medicine [address] [place] [address] Family Medicine, Physician [address] [place], [place] [phone] Social History Tobacco Use Types Packs/Day Years [...] on filedocumented in this encounter Care Teams Elementary Ell Teacher Relationship Specialty Start Date End Date Yani Contreras MD [address] [place] [address] [place] [address] PCP - General 01/30/17 documented as of this encounter
--- OUTSIDE RECORDS SUMMARY | 2025-06-19 13:26 | XMS_ITS | Encounter Summary ---
Author Organization [facility] Address [address] [place] [address] Phone Care Team Providers Care Radiotelegrapher Name Role Phone Yani Contreras MD Primary Care Provider [phone] Encounter Details Date Type Department Care Team (Late st Contact Info) Description 10/20/2016 Documentation EM Family Medicine [address] [place] [address] Family Medicine, Physician [address] [place], [place] [phone] Social History Tobacco Use Types Packs/Day Years [...] on filedocumented in this encounter Care Teams Radiotelegrapher Relationship Specialty Start Date End Date Yani Contreras MD [address] [place] [address] [place] [address] PCP - General 01/30/17 documented as of this encounter
--- OUTSIDE RECORDS SUMMARY | 2025-06-19 13:26 | XMS_ITS | Encounter Summary ---
Author Organization [facility] Address [address] [place] [address] Phone Care Team Providers Care Software Development Specialist Name Role Phone Yani Contreras MD Primary Care Provider [phone] Encounter Details Date Type Department Care Team (Late st Contact Info) Description 02/05/2017 Conversion Encounter [facility] [address] [place], [place] [phone] Social History Tobacco Use Types Packs/Day Years [...] on filedocumented in this encounter Care Teams Software Development Specialist Relationship Specialty Start Date End Date Yani Contreras MD [address] [place] [address] PCP - General 01/30/17 documented as of this encounter
--- OUTSIDE RECORDS SUMMARY | 2025-06-19 13:26 | XMS_ITS | Encounter Summary ---
Author Organization [facility] Address [address] [place] [address] Phone Care Team Providers Care Learning And Development Officer Name Role Phone Yani Contreras MD Primary Care Provider [phone] Encounter Details Date Type Department Care Team (Late st Contact Info) Description 06/27/2015 Documentation EM Family Medicine [address] [place] [address] Family Medicine, Physician [address] [place], [place] [phone] Social History Tobacco Use Types Packs/Day Years [...] on filedocumented in this encounter Care Teams Learning And Development Officer Relationship Specialty Start Date End Date Yani Contreras MD [address] [place] [address] [place] [address] PCP - General 01/30/17 documented as of this encounter
--- OUTSIDE RECORDS SUMMARY | 2025-06-19 13:26 | XMS_ITS | Encounter Summary ---
Author Organization [facility] Address [address] [place] [address] Phone Care Team Providers Care Installation Superintendent Name Role Phone Yani Contreras MD Primary Care Provider [phone] Encounter Details Date Type Department Care Team (Late st Contact Info) Description 05/03/2013 Documentation EM Family Medicine [address] [place] [address] Family Medicine, Physician [address] [place], [place] [phone] Social History Tobacco Use Types Packs/Day Years [...] on filedocumented in this encounter Care Teams Installation Superintendent Relationship Specialty Start Date End Date Yani Contreras MD [address] [place] [address] [place] [address] PCP - General 01/30/17 documented as of this encounter
--- OUTSIDE RECORDS SUMMARY | 2025-06-19 13:26 | XMS_ITS | Encounter Summary ---
Author Organization [facility] Address [address] [place] [address] Phone Care Team Providers Care Dielectric Testing Machine Operator Name Role Phone Yani Contreras MD Primary Care Provider Encounter Details Date Type Department Care Team (Late st Contact Info) Description 05/24/2013 Documentation EM Family Medicine [address] [place] [address] Family Medicine, Physician [address] [place], [place] [phone] Social History Tobacco Use Types Packs/Day Years [...] on filedocumented in this encounter Care Teams Dielectric Testing Machine Operator Relationship Specialty Start Date End Date Yani Contreras MD [address] [place] [address] [place] [address] PCP - General 01/30/17 documented as of this encounter
--- OUTSIDE RECORDS SUMMARY | 2025-06-19 13:26 | XMS_ITS | Encounter Summary ---
Author Organization [facility] Address [address] [place] [address] Phone Care Team Providers Care Tubular Products Fabricator Name Role Phone Yani Contreras MD Primary Care Provider [phone] Encounter Details Date Type Department Care Team (Late st Contact Info) Description 06/01/2015 Documentation EM Family Medicine [address] [place] [address] Family Medicine, Physician [address] [place], [place] [phone] Social History Tobacco Use Types Packs/Day Years [...] on filedocumented in this encounter Care Teams Tubular Products Fabricator Relationship Specialty Start Date End Date Yani Contreras MD [address] [place] [address] [place] [address] PCP - General 01/30/17 documented as of this encounter
--- OUTSIDE RECORDS SUMMARY | 2025-06-19 13:26 | XMS_ITS | Encounter Summary ---
Author Organization [facility] Address [address] [place] [address] Phone Care Team Providers Care Professional Engineer Name Role Phone Yani Contreras MD Primary Care Provider [phone] Encounter Details Date Type Department Care Team (Late st Contact Info) Description 05/03/2013 Documentation EM Family Medicine [address] [place] [address] Family Medicine, Physician [address] [place], [place] [phone] Social History Tobacco Use Types Packs/Day Years [...] on filedocumented in this encounter Care Teams Professional Engineer Relationship Specialty Start Date End Date Yani Contreras MD [address] [place] [address] [place] [address] PCP - General 01/30/17 documented as of this encounter
--- OUTSIDE RECORDS SUMMARY | 2025-06-19 13:26 | XMS_ITS | Encounter Summary ---
Author Organization [facility] Address [address] [place] [address] Phone Care Team Providers Care Thermoplastic Technician Name Role Phone Yani Contreras MD Primary Care Provider [phone] Encounter Details Date Type Department Care Team (Late st Contact Info) Description 05/04/2014 Documentation EM Family Medicine [address] [place] [address] Family Medicine, Physician [address] [place], [place] [phone] Social History Tobacco Use Types Packs/Day Years [...] on filedocumented in this encounter Care Teams Thermoplastic Technician Relationship Specialty Start Date End Date Yani Contreras MD [address] [place] [address] [place] [address] PCP - General 01/30/17 documented as of this encounter
--- OUTSIDE RECORDS SUMMARY | 2025-06-19 13:26 | XMS_ITS | Encounter Summary ---
Author Organization [facility] Address [address] [place] [address] Phone Care Team Providers Care Local Delivery Truck Driver Name Role Phone Yani Contreras MD Primary Care Provider [phone] Encounter Details Date Type Department Care Team (Late st Contact Info) Description 05/13/2011 Documentation EM Family Medicine [address] [place] [address] Family Medicine, Physician [address] [place], [place] [phone] Social History Tobacco Use Types Packs/Day Years [...] on filedocumented in this encounter Care Teams Local Delivery Truck Driver Relationship Specialty Start Date End Date Yani Contreras MD [address] [place] [address] [place] [address] PCP - General 01/30/17 documented as of this encounter
== END 2025-06-19 12:02 | disposition home or self-care (01) ==
PROVIDERS: PCP Specialist; Visit Provider Nurse Practitioner Family
DX: N36.8 Other specified disorders of urethra (principal); N50.3 Cyst of epididymis; N40.1 Benign prostatic hyperplasia with lower urinary tract symptoms; N13.8 Other obstructive and reflux uropathy
CPT/HCPCS: 99213

== ENCOUNTER → 2025-06-19 11:26 | Outpatient (BNVA) | payer BC, SELFPAY | PROVIDERS: PCP Specialist; Visit Provider Nurse Practitioner Family | DX: N40.1 Benign prostatic hyperplasia with lower urinary tract symptoms (principal); N13.8 Other obstructive and reflux uropathy; N36.8 Other specified disorders of urethra; N50.3 Cyst of epididymis | CPT/HCPCS: 81003 ==